=== PATIENT | male | born 2000 | race Two or more races ===

== ENCOUNTER 2021-02-04 19:09 | Emergency (ER) | payer BC ==
[~2021-02-04] VITALS: Ht 172.7 cm; Wt 77.1 kg
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
[2021-02-04] MEDS ORDERED: KETOROLAC TROMETHAMINE 60 MG INJ IM ONE ×2 (20:30→20:47)
--- NOTE | 2021-02-04 21:15 | NUR ---
EDMD ordered knee immobilizer and crutches, XR is neg for any fx or deformity.
[2021-02-04] MEDS ORDERED: TDAP DIPH,PERTUSS,TET VAC/PF 0.5 ML DISP.SYRIN IM ONE ×2 (21:30→21:56)
[2021-02-04] MEDS ORDERED: SULFAMETH/TRIMETH 800/160 MG TABLET PO ONE (21:30)
--- NOTE | 2021-02-04 21:30 | NUR ---
Large abrasion on Rt anterior knee scrubbed with [employer] scrub brush until site was completely cleansed. Large tegaderm applied over abrasion, so as to not soil the knee immobilizer in case it starts to bleed again. Brand new 20in universal knee immobilizer applied to Rt knee gently due to pt complaining of extreme pain at site of Rt knee. Sized immobilizer to pt for proper fit and maximum comfort and support. Pt has good CMS and Cap refill<3sec before and after application of knee immobilizer. Pt told to strap it tight when out and about and to loosen it when at home lounging. Discussed risk of constriction when strapped too tight and high risk of falls when using crutches. Pt given full and complete crutch instructions and demonstration on proper usage. Pt confirmed understanding of proper crutch usage and do's and don'ts. Pt acknowledged understanding of teaching and crutch demo. Pt complaining of moderate to severe pain 8-9/10 while trying to return crutch demo. Pt requested more pain med in order to be able to be properly sized for the crutches and so I could road test him before he leaves. EDMD ordered 4mg MS in 1ml IM injection. Administered to pt without difficulty, pt tolerated well, without reaction.
[2021-02-04] MEDS ORDERED: IBUP-1955 PO (21:31)
[2021-02-04] MEDS ORDERED: SULF1TAB48 PO (21:31)
--- NOTE | 2021-02-04 21:47 | NUR ---
Tdap IM injection and Bactrim DS tablet PO administered to pt, injection given in lt deltoid without difficulty or any complaints of pain. Pt tolerated well with no s/sx of reaction or distress present.
[2021-02-04] MEDS ORDERED: SULFAMETH/TRIMETH 800/160 MG TABLET ONE (21:57)
[2021-02-04] MEDS ORDERED: ACET1TAB23 PO (22:04)
--- NOTE | 2021-02-04 22:06 | NUR ---
Pt properly sized and crutches properly adjusted to pt to ensure a proper and comfortable fit so as to prevent possible falls from poor fit. Told pt to keep back straight, elbows locked, bare wt on the palms and not the arm pits, to step and move deliberately and methodocally so as to prevent falls and injury. Discussed high risk of falls when using crutchs with pt. Pt acknowledged risk inherent in using crutches. Pt road tested with flying colors. Pt performed very well in the proper use of crutches and took to them right away. Pt was told to slow down and becareful when using the crutches. Pt agreed.
--- NOTE | 2021-02-04 22:10 | NUR ---
Pt DCed home with aftercare instructions and medication prescribtions. Pertinent info regarding prescribtions was given to pt, went over DC instructions with pt to confirm pt understands aftercare to be done. Pt acknowledges understanding of all instructions given. Pt is AAOx4, with good color, temp and appearance. VSS, PE WNL , otherwise completely healthy individual. Complaints of mild pain when walking, denies nausea. No s/sx of distress present. Pt asisted out of the dept on crutches with excelent crutch technique.
[2021-02-04] MEDS ORDERED: MORPHINE SULFATE 4 MG/1 ML DISP.SYRIN IM ONE (22:15)
[2021-02-04] MEDS ORDERED: MORPHINE SULFATE 4 MG/1 ML DISP.SYRIN ONE (22:15)
[2021-02-04 23:05] VITALS: BP 128/78
== END 2021-02-04 22:10 | disposition home or self-care (01) ==
LOC: ER 19:14
DX: S83.91XA Sprain of unspecified site of right knee, initial encounter (principal); S80.211A Abrasion, right knee, initial encounter; L03.115 Cellulitis of right lower limb; V86.56XA Driver of dirt bike or motor/cross bike injured in nontraffic accident, initial encounter; Y93.89 Activity, other specified; Y92.89 Other specified places as the place of occurrence of the external cause
CPT/HCPCS: 73562; 90715; A4663; J1885; J2270

== ENCOUNTER 2021-02-12 18:57 | Emergency (ER) | payer BC ==
[~2021-02-12] VITALS: Ht 172.7 cm; Wt 77.1 kg
[~2021-02-12 18:57] MED LIST: ACET1TAB23 PO; IBUP-1955 PO; SULF1TAB48 PO
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
--- NOTE | 2021-02-12 19:22 | NUR ---
Dr. Pearson on bedside for MSE.
[2021-02-12] MEDS ORDERED: CLIN300C12 PO (19:33)
[2021-02-12] MEDS: CLINDAMYCIN PHOSPHATE 600 MG/4 ML VIAL IM ONE (19:33)
[2021-02-12] MEDS ORDERED: CLINDAMYCIN PHOSPHATE 600 MG/4 ML VIAL ONE (19:36)
[2021-02-12] MEDS: NEOMY/BACITRA/POLYMYXIN B OINT UD PACKET TP ONE (19:52)
[2021-02-12] MEDS ORDERED: NEOMY/BACITRA/POLYMYXIN B OINT UD PACKET TP ONE (19:55)
--- NOTE | 2021-02-12 19:55 | NUR ---
Patient discharged to home in stable condition. Written and verbal after care instructions given. Patient verbalizes understanding of instructions. Stressed follow up or return to ER for worsening s/s. Patient ambulated from the ER using crutches. All belongings with patient.
[2021-02-12 20:02] VITALS: BP 129/71
== END 2021-02-12 19:55 | disposition home or self-care (01) ==
LOC: ER 18:57
DX: S80.211D Abrasion, right knee, subsequent encounter (principal); V86.96XD Unspecified occupant of dirt bike or motor/cross bike injured in nontraffic accident, subsequent encounter; L08.9 Local infection of the skin and subcutaneous tissue, unspecified
CPT/HCPCS: 96372; 99283; J3490; A4663